=== PATIENT | male | born 1990 ===

== ENCOUNTER 2018-11-27 08:31 | Inpatient (IN) ==
[2018-11-27] MEDS ORDERED: *HR* HYDROmorphone 20 MG/20 ML PCA IVC PRN (10:38)
--- NOTE | 2018-11-27 11:21 | Pallative History & Physical ---
Date of Encounter: 11/27/18 Time of Encounter: 09:00 Assessment and Plan (1) Cancer associated pain Current visit: Yes Status: Acute Offered to start pt on IV Dilaudid HOIST OPERATOR. Patient at first was asking for trial of Ketamine, agreed for a one time infusion to see if it will improve his overall pain profile. However, after further discussion, patient decided that his primary goal was to eave the hospital as soon as possible, and to avoid any delays, will rather continue with IV Dilaudid. Concerns were raised by farmjulian about availability of Dilaudid after discharge. Called and talked to home infusion farmacist Jass Phillip. He confirmed for now can have access to about 2 weeks supply of the medication. Plan: -IR consulted for midline placement -to start on Diaudid HOIST OPERATOR, calculated pt was on 1320 OMEs at home, wicth is 66mg of IV dilaudid in 24 hr. Did not do cross tolerance due to pain being uncontrolled. Will start on1mg bolus, followed by 1.5mg/h, with 0.2 mg HOIST OPERATOR q10 minutes. Discussed with clinical pharmacist Ariel. -continue Dexamethasone 4mg qd -continue duloxetine 60mg qd and Amytriptiline 25 mg qhs for neuropathic pain (2) Intractable nausea and vomiting Current visit: Yes Status: Acute Pt has tried several medication, including Haldol, and medical marijuana. Hospital pharmacy unable to compound ABHR (ativan, benadryl, haldol, reglan), may be able to give this same combination IV once line available, and have family bring in the compound. -in the meantime, will increase Haldol to 2 mg PO. Qualifiers: Vomiting type: unspecified Qualified Code(s): R11.2 - Nausea with vomiting, unspecified (3) Anorexia Current visit: Yes Status: Acute Patient is unable to tolerate POs and PEG tube feeds. on Steroids, and mirtazapine. (4) Anxiety Current visit: Yes Status: Acute Ativan prn (5) Constipation Current visit: Yes Status: Acute Polyetylene glycol prn senna daily Qualifiers: Constipation type: drug induced constipation Qualified Code(s): K59.03 - Drug induced constipation (6) Hepatitis C, chronic Current visit: Yes Status: Chronic patient is in [facility] for Hepc treatment. Will discuss with family the need to continue treatment in setting of terminal disease Qualifiers: Hepatic coma status: without hepatic coma Qualified Code(s): B18.2 - Chronic viral hepatitis C (7) Asthma Current visit: Yes Status: Chronic continue home inhalers Qualifiers: Asthma severity: moderate Asthma persistence: unspecified Asthma complication type: uncomplicated Qualified Code(s): J45.909 - Unspecified asthma, uncomplicated (8) Goals of care, counseling/discussion Current visit: Yes Status: Acute Patient and family were present at the bedside: mother, cousin, aunt. Pt's cousin is his primary caregiver. Discussed that in view of current worsening oral intake and PPS, patient's prognosis is now days to a few weeks. Patient's most important goal is to at home, and he would like to be discharged home immediately if any acute worsening occurs. Plan is to address pain management and nausea, and discharge home as soon as possible, likely tomorrow. Al in ag reement. 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 Patient has relevant pmh of neurofibromatosis type 1, HepC, seizure (2011), asthma and depression. Pt was diagnosed with metastatic sarcoma when he was admitted to [facility] in 05/27/18 for LUQ pain, flank pain, n,v, decreased appetite and 14lbs weight loss. CT showed large RUQ mass displacing the stomach, spleen and left kidney, lytic L5 lesion and scattered pulmonary nodules. Patient did not tolerate chemotherapy and underwent a cycle of radiations. PEG tube was inserted in 07/16/18 to improve oral intake, Pleurx cath was inserted on 11/07/18 for frequent paracentesis. Patient was admitted to [facility] on 10/31/18. Patient presents with intractable pain and nausea. On exam he is AAO x3, cachetic, sick looking. Pain is mostly located in the back, and the abdomen, it is a dull constant pain. The best it gets is 6/10. At the time of exam pt rated his pain to a 10/10. He is on Morphine ER 200mg q8hrs and oxycodone IR 60mg q3hrs. He states he takes the medications every time they are due, but now they do not seem to make any significant difference, and the oxycodone last less than 2 hours. Patient mother stated that in [facility] he was given Ketamine for a few days, and afterwards he was more comfortable with his pain medication. Patient also complaining of intractable nausea and vomiting, that causes him to be unable to hold down his tube feeding or POs. He have tried many different medication, including medical marijuana, but nothing seems to help. He was ordered a new compound gel preparation yesterday, combination of Haldol, Ativan, Benadryl and Reglan. Have not had a change to try it yet. Patient per family appears weaker and drowsier today. He denies any constipation, dysuria, dry mouth, headaches, diplopia. Past Med Surg Social Fam HX - Past Medical History Medical history: cancer Psychiatric history: anxiety - Past Surgical History Additional surgical history: back surgery- multiple. g-tube - Social History Smoking Status: Former smoker Smokeless Tobacco Status: No Alcohol use: none Drug use: marijuana, other Internal Medicine - H&P: Meds Albuterol Sulfate [Proair Respiclick] 1 puff IH Q6H PRN 11/27/18 [History] Amitriptyline [Elavil] 25 mg PO HS 11/27/18 [History] Docusate Sodium [Dulcolax Stool Softener] 100 mg PO BID 11/27/18 [History] Duloxetine HCl [Cymbalta] 60 mg PO DAILY 11/27/18 [History] Haloperidol Oral Conc [Haldol] 1 mg PO Q6H PRN 11/27/18 [History] LORazepam [Ativan] 0.5 mg PO Q4HR PRN 11/27/18 [History] Mirtazapine [Remeron] 15 mg PO 1800 11/27/18 [History] Mometasone/Formoterol [Dulera 200 Mcg/5 Mcg Inhaler] 2 puff IH BID 11/27/18 [History] Morphine Sulfate SR (12 HR) [MS Contin] 1 tab PO Q8HR PRN 11/27/18 [History] Nutritional Supplement [Osmolite 1.2 Luis] 1 can PO TID 11/27/18 [History] OLANZapine [Zyprexa] 5 mg PO HS 11/27/18 [History] Oxycodone HCl [Oxycodone HCl ER] 60 mg PO Q3H PRN 11/27/18 [History] Polyethylene Glycol 3350 [Smoothlax] 17 gm PO BID PRN 11/27/18 [History] Ranitidine HCl [Heartburn Relief] 150 mg PO HS 11/27/18 [History] Sennosides [Senna] 8.6 mg PO DAILY 11/27/18 [History] Sofosbuvir/Velpatasvir [Epclusa 400 mg-100 mg Tablet] 1 tab PO DAILY 11/27/18 [History] Spironolactone [Aldactone] 25 mg PO DAILY 11/27/18 [History] dexAMETHasone [Dexamethasone] 4 mg PO BID 11/27/18 [History] Allergy/AdvReac Type Severity Reaction Status Date / Time bacitracin Allergy Rash Verified 11/27/18 10:33 [From Neosporin ([id number])] clindamycin Allergy Anaphylaxis Verified 11/27/18 10:33 Neomycin Allergy Rash Verified 11/27/18 10:33 [From Neosporin ([id number])] polymyxin B Allergy Rash Verified 11/27/18 10:33 [From Neosporin ([id number])] Sulfa (Sulfonamide Allergy Anaphylaxis Verified 11/27/18 10:33 Antibiotics) sulfamethoxazole Allergy Anaphylaxis Verified 11/27/18 10:33 [From Bactrim] trimethoprim [From Bactrim] Allergy Anaphylaxis Verified 11/27/18 10:33 - Constitutional Constitutional ROS PAL: decreased appetite, anorexia, fatigue, weight loss - EENT Eyes: no change in vision, no diplopia Ears, nose, mouth, throat: no dry mouth - Cardiovascular Cardiovascular ROS: no dyspnea on exertion, no palpitations - Respiratory Respiratory: no dyspnea, no wheezing - Gastrointestinal Gastrointestinal: abdominal pain, bloating - Genitourinary Genitourinary ROS male: flank pain, no dysuria - Musculoskeletal Musculoskeletal ROS IM: back pain, muscle weakness, no arthralgias - Integumentary Additional comments: neurofibromas - Neurological Neurological ROS: no focal weakness, no headache(s) - Psychiatric Psychiatric general PM: depression Palliative Care-Exam - Constitutional Exam: Vitals reviewed General appearance: alert, oriented x3, in moderate distress due to pain Eyes: nonicteric, EOMI EENT: oropharynx moist Neck: supple, no lymphadenopathy, no JVD Chest: bilateral: normal breath sounds, shallow breaths Cardiovascular: regular rate and rhythm, no murmur, rub, gallop Gastrointestinal: distended abdomen, firm, PEG tube and Pleurx Cath in place, cleam looking Integumentary: intect, diffused neurofibromas Extremities: no cyanosis, 2+ LE edema Musculoskeletal: no deformities Neurologic: AAOx3, non-focal exam Psych: depressed mood Palliative Quality Palliative Quality: Screen for Code Status: Yes, Screen for Goals of Care: Yes, Screen for Pain: Yes, If Pain Regimen Started, Initiate Bowel Regimen: Yes, Screen for Nausea/Vomitting: Yes Code Status: 11/27/18 10:01 Resuscitation Status: Active [RES] Routine Comment: Resuscitation Status: DNR-Comfort Care
[2018-11-27] MEDS: *HR* OxyCODONE Immed Rel 15 MG TABLET PO PRN ×3 (11:49→20:50)
[2018-11-27] MEDS: Haloperidol Oral Conc 10 MG/5 ML UDC PO PRN ×2 (12:50→20:06)
[2018-11-27] MEDS: *HR* LORazepam 0.5 MG TABLET PO PRN ×2 (12:53→20:05)
[2018-11-27] MEDS ORDERED: Haloperidol Lactate 5 MG/ML VIAL IVP PRN (12:53)
[2018-11-27] MEDS: *HR* HYDROmorphone 20 MG/20 ML PCA IVC PRN (14:00)
[2018-11-27] MEDS: Metoclopramide 10 MG/2 ML VIAL IVP PRN (17:00)
[2018-11-27] MEDS: dexAMETHasone 4 MG TABLET PO SCH (20:05)
[2018-11-27] MEDS ORDERED: Famotidine 20 MG TABLET PO SCH (21:00)
[2018-11-27] MEDS ORDERED: OLANZapine 5 MG TAB.RAPDIS PO SCH (21:00)
[2018-11-27] MEDS ORDERED: Mirtazapine 15 MG TABLET PO SCH (21:00)
[2018-11-27] MEDS: Ipratropium/Albuterol Neb 3 ML IH SCH (22:20)
[2018-11-28] MEDS: *HR* HYDROmorphone 20 MG/20 ML PCA IVC PRN (01:14)
[2018-11-28 06:58] VITALS: BP 111/79
[2018-11-28] MEDS ORDERED: *HR* HYDROmorphone 20 MG/20 ML PCA IVC PRN (08:33)
[2018-11-28] MEDS ORDERED: Sennosides 8.6 MG TABLET PO SCH (09:00)
[2018-11-28] MEDS ORDERED: Spironolactone 25 MG TABLET PO SCH (09:00)
[2018-11-28] MEDS: Metoclopramide 10 MG/2 ML VIAL IVP PRN (09:34)
[2018-11-28] MEDS: *HR* OxyCODONE Immed Rel 15 MG TABLET PO PRN ×2 (09:34→12:23)
[2018-11-28] MEDS: dexAMETHasone 4 MG TABLET PO SCH (09:34)
[2018-11-28] MEDS: Ipratropium/Albuterol Neb 3 ML IH SCH (11:16)
--- NOTE | 2018-11-28 11:29 | Discharge Summary ---
- NOTES TO OUTPATIENT PROVIDER Notes to Outpatient Provider: -Pain: patient started on Dilaudid HIGH SCHOOL COMPUTER SCIENCE TEACHER, current dose 2.5mg/h and 0.3 mg prn q10 minutes. not well controlled, will need fast titration of pain meds. May add a Fentanyl Patch 100mcg if still uncomfortable. -Nausea persist, tried using Haldol and Reglan IV combined. Wale need the ABHR compound. Date of Encounter: 11/28/18 Time of Encounter: 10:00 - Discharge Diagnosis (1) Cancer associated pain Priority: Primary Status: Acute Comments: On dilaudid IV HIGH SCHOOL COMPUTER SCIENCE TEACHER, current dose 2.5mg/h and 0.3 mg prn q10 minutes. Not well controlled, will need fast titration of pain meds. May add a Fentanyl Patch 100mcg if still uncomfortable. (2) Intractable nausea and vomiting Priority: Primary Status: Acute Comments: ABHR compound was not available, Tried Haldol and reglan IV Qualifiers: Vomiting type: unspecified Qualified Code(s): R11.2 - Nausea with vomiting, unspecified (3) Anorexia Priority: Primary Status: Acute (4) Anxiety Priority: Secondary Status: Acute (5) Constipation Priority: Secondary Status: Acute Qualifiers: Constipation type: drug induced constipation Qualified Code(s): K59.03 - Drug induced constipation (6) Hepatitis C, chronic Priority: Secondary Status: Chronic Qualifiers: Hepatic coma status: without hepatic coma Qualified Code(s): B18.2 - Chronic viral hepatitis C (7) Asthma Priority: Secondary Status: Chronic Qualifiers: Asthma severity: moderate Asthma persistence: unspecified Asthma complication type: uncomplicated Qualified Code(s): J45.909 - Unspecified asthma, uncomplicated (8) Goals of care, counseling/discussion Priority: Secondary Status: Acute (9) Sarcoma of dendritic cells (accessory cells) Priority: Primary Status: Acute - Hospital Course Hospital course: Mr. 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 Patient has relevant pmh of neurofibromatosis type 1, HepC, seizure (2011), asthma and depression. Pt was diagnosed with metastatic sarcoma when he was admitted to [facility] in 05/27/18 for LUQ pain, flank pain, n,v, decreased appetite and 14lbs weight loss. CT showed large RUQ mass displacing the stomach, spleen and left kidney, lytic L5 lesion and scattered pulmonary nodules. Patient did not tolerate chemotherapy and underwent a cycle of radiations. PEG tube was inserted in 07/16/18 to improve oral intake, Pleurx cath was inserted on 11/07/18 for frequent paracentesis. Patient was admitted to [facility] on 10/31/18. Milton presents with intractable pain and nausea. On exam he is AAO x3, cachetic, sick looking. Pain is mostly located in the back, and the abdomen, it is a dull constant pain. Patient was admitted, midline place and started on IV Dilaudid HIGH SCHOOL COMPUTER SCIENCE TEACHER. Starting dose of 1.5mg/hr and 0.2 mg q10m prn was not effective. Rate this morning was increased to 2.5 mg/hr and 0.3mg q10min. Patient will need further titration on meds, however his most important goal is to return home. Milton appears to be declining fast, and after discussion with him and his mother at the bedside, decision was made to discharge him home while still possible and continue titration at home. Patient is also having worsening nausea, not tolerating any POs, all meds to be given in PEG tube. Hospice nurse Jocelynn and Home infusion pharmacist Jass were reached to coordinate discharge. Patient reevaluated 3 hours after change in settings, awake, states to be feeling somewhat better now. Very glad to be returning home. - Time Spent with Patient Total time spent providing and/or coordinating discharge services: Greater than 30 minutes - Discharge Medications Prescriptions: New HYDROmorphone 20 MG/20 ML HIGH SCHOOL COMPUTER SCIENCE TEACHER [Dilaudid 20 MG/20 ML HIGH SCHOOL COMPUTER SCIENCE TEACHER] 1 each IVC PROTOCOL PRN supervisor channel process.vial PRN Reason: Pain Continued Haloperidol Oral Conc [Haldol] 1 mg PO Q6H PRN PRN Reason: nauea Mirtazapine [Remeron] 15 mg PO 1800 Sofosbuvir/Velpatasvir [Epclusa 400 mg-100 mg Tablet] 1 tab PO DAILY Amitriptyline [Elavil] 25 mg PO HS Duloxetine HCl [Cymbalta] 60 mg PO DAILY Docusate Sodium [Dulcolax Stool Softener] 100 mg PO BID Spironolactone [Aldactone] 25 mg PO DAILY dexAMETHasone [Dexamethasone] 4 mg PO BID LORazepam [Ativan] 0.5 mg PO Q4HR PRN PRN Reason: Anxiety Nutritional Supplement [Osmolite 1.2 Luis] 1 can PO TID Sennosides [Senna] 8.6 mg PO DAILY Ranitidine HCl [Heartburn Relief] 150 mg PO HS Polyethylene Glycol 3350 [Smoothlax] 17 gm PO BID PRN PRN Reason: Constipation OLANZapine [Zyprexa] 5 mg PO HS Albuterol Sulfate [Proair Respiclick] 1 puff IH Q6H PRN PRN Reason: SOB/wheezing Mometasone/Formoterol [Dulera 200 Mcg/5 Mcg Inhaler] 2 puff IH BID Discontinued Morphine Sulfate SR (12 HR) [MS Contin] 1 tab PO Q8HR PRN PRN Reason: Pain Oxycodone HCl [Oxycodone HCl ER] 60 mg PO Q3H PRN PRN Reason: Breakthrough Pain Home Medications: Albuterol Sulfate [Proair Respiclick] 1 puff IH Q6H PRN 11/27/18 [History] Amitriptyline [Elavil] 25 mg PO HS 11/27/18 [History] Docusate Sodium [Dulcolax Stool Softener] 100 mg PO BID 11/27/18 [History] Duloxetine HCl [Cymbalta] 60 mg PO DAILY 11/27/18 [History] Haloperidol Oral Conc [Haldol] 1 mg PO Q6H PRN 11/27/18 [History] LORazepam [Ativan] 0.5 mg PO Q4HR PRN 11/27/18 [History] Mirtazapine [Remeron] 15 mg PO 1800 11/27/18 [History] Mometasone/Formoterol [Dulera 200 Mcg/5 Mcg Inhaler] 2 puff IH BID 11/27/18 [History] Nutritional Supplement [Osmolite 1.2 Luis] 1 can PO TID 11/27/18 [History] OLANZapine [Zyprexa] 5 mg PO HS 11/27/18 [History] Polyethylene Glycol 3350 [Smoothlax] 17 gm PO BID PRN 11/27/18 [History] Ranitidine HCl [Heartburn Relief] 150 mg PO HS 11/27/18 [History] Sennosides [Senna] 8.6 mg PO DAILY 11/27/18 [History] Sofosbuvir/Velpatasvir [Epclusa 400 mg-100 mg Tablet] 1 tab PO DAILY 11/27/18 [History] Spironolactone [Aldactone] 25 mg PO DAILY 11/27/18 [History] dexAMETHasone [Dexamethasone] 4 mg PO BID 11/27/18 [History] HYDROmorphone 20 MG/20 ML HIGH SCHOOL COMPUTER SCIENCE TEACHER [Dilaudid 20 MG/20 ML HIGH SCHOOL COMPUTER SCIENCE TEACHER] 1 each IVC PROTOCOL PRN supervisor channel process.vial 11/28/18 [Rx] Allergies/Adverse Reactions: Allergy/AdvReac Type Severity Reaction Status Date / Time bacitracin Allergy Rash Verified 11/27/18 10:33 [From Neosporin ([id number])] clindamycin Allergy Anaphylaxis Verified 11/27/18 10:33 Neomycin Allergy Rash Verified 11/27/18 10:33 [From Neosporin ([id number])] polymyxin B Allergy Rash Verified 11/27/18 10:33 [From Neosporin ([id number])] Sulfa (Sulfonamide Allergy Anaphylaxis Verified 11/27/18 10:33 Antibiotics) sulfamethoxazole Allergy Anaphylaxis Verified 11/27/18 10:33 [From Bactrim] trimethoprim [From Bactrim] Allergy Anaphylaxis Verified 11/27/18 10:33 Internal Medicine - DS: Prov Date of admission: 11/27/18 08:32 Primary care physician: PCP NONE Admitting clinician: Mirna Moreno Attending physician on admission: Mirna Moreno Consults: 11/27/18 10:01 Consult to Palliative Care [CONS] Routine Comment: Consulting Provider: Palliative Care Janet Reason for Consult: GIP Call Completed: Yes 11/27/18 12:20 Consult to Invasive Line Access Team [CONS] Routine Reason for Consult: midline Line Type: Midline Attending physician on discharge: Mirna Moreno Discharging clinician: Mirna Moreno Anticipated date of discharge: 11/28/18 Internal Medicine - DS: Exam - Constitutional Vitals: Vital Signs Temp Pulse Resp BP Pulse Ox 11/28/18 06:53 98.3 F 139 16 111/79 90 11/27/18 23:00 89 11/27/18 19:18 98.4 F 116 15 100/68 89 Intake and Output 11/27/18 11/28/1819 23:59 07:59 15:59 Intake Total 0 / 0 Output Total 0 / 0 Balance 0 / 0 Intake: Oral 0 / 0 Output: Urine 0 / 0 Other: Meal turkey sandwich, jello Percent of Meal Consumed 50% Weight 44 kg Additional comments: Exam: Vitals reviewed General appearance: drowsy, moaning when awoken Eyes: nonicteric, EOMI EENT: oropharynx moist Neck: supple, no lymphadenopathy, no JVD Chest: bilateral: normal breath sounds, shallow breaths Cardiovascular: regular rate and rhythm, no murmur, rub, gallop Gastrointestinal: distended abdomen, firm, PEG tube and Pleurx Cath in place, cleam looking Integumentary: intect, diffused neurofibromas Extremities: no cyanosis, 2+ LE edema Musculoskeletal: no deformities Neurologic: AAOx3, non-focal exam - Patient Status Disposition: Hospice - Home Condition: Serious Functional capacity at discharge: bed bound Overall status at discharge: patient is not back to baseline - Discharge Instructions Follow Up With: NONE,PCP [Primary Care Provider] -
== END 2018-11-28 12:25 | disposition hospice, home (50) | DRG 951 ==
LOC: 2ANU 08:32
PROVIDERS: ADMIT Internal Medicine Hospice and Palliative Medicine; ATTEND Internal Medicine Hospice and Palliative Medicine